=== PATIENT | female | born 1955 | race Caucasian/White ===

== ENCOUNTER → 2017-07-29 | Outpatient (CLI) | payer OTHER ==
[~2017-07-29] MED LIST: ACET-1966 PO; ASPI-692 PO; BIOT800T4 PO; CART1TAB5 PO; CHOL10005 PO; ESTR-35 PO; ESTRADIOL VAG CREAM VA; GRAP50CA5 PO; IBUP-1687 PO; MULT-1335 PO; OMEG-11 PO; RANI-324 PO; VITA-197 PO; VITA1CAP46 PO
--- NOTE | 2017-07-30 10:30 | RADIOLOGY IMAGING REPORT ---
FACILITY: [facility] PATIENT NAME: DARÍO EUGENE : [id number] MR: [id number] V: [id number] EXAM DATE: [id number] ORDERING PHYSICIAN: SAMI REYES TECHNOLOGIST: Melvina June PROCEDURE:BILATERAL DIGITAL SCREENING MAMMOGRAM WITH CAD ASSISTED INTERPRETATION AND 3D BREAST TOMOSYNTHESIS. COMPARISON:Prior mammograms dated 04/12/16, 01/18/15, 05/08/13, 10/19/11 and 08/07/10. INDICATIONS:SCREENING FINDINGS: Moderately heterogeneous fibroglandular tissue is seen throughout the breasts. The parenchymal pattern has remained stable when allowing for difference in mammographic technique and patient positioning. There is no evidence of malignant appearing mass, malignant appearing calcification or other secondary sign of malignancy in either breast. DIAGNOSTIC CATEGORY 2--BENIGN FINDING. RECOMMENDATIONS: ROUTINE MAMMOGRAM AND CLINICAL EVALUATION. IMPRESSION: Bi-RADS 2: No significant abnormality is seen. Images were reviewed with R2CAD and 3D breast tomosynthesis. Dictated by: Laureen Jorge M.D. on 07/29/2017 at 16:58 Transcribed by: AFSHIN on 07/29/2017 at 22:10 Approved by: Laureen Jorge M.D. on 07/30/2017 at 10:29 [facility]
== END ==
LOC: MAMO 01:36
PROVIDERS: ATTEND Nurse Practitioner Family
DX: Z12.31 Encounter for screening mammogram for malignant neoplasm of breast (principal)
CPT/HCPCS: 77063; 77067

== ENCOUNTER → 2018-08-28 | Outpatient (CLI) | payer OTHER ==
[~2018-08-28] MED LIST changes: -RANI-324 PO; +RANI-366 PO
--- NOTE | 2018-08-28 11:08 | RADIOLOGY IMAGING REPORT ---
FACILITY: [facility] PATIENT NAME: Ruth Galaviz : 1955 MR: [id number] V: [id number] EXAM DATE: ORDERING PHYSICIAN: SAMI REYES TECHNOLOGIST: Location: [facility] Patient: Ruth Galaviz : 1955 Visit/Account:[id number] Date of Sevice: 08/28/2018 DEXA Scan Clinical history: Postmenopausal screening. Comparison: DEXA scan from 01/10/2015. LUMBAR SPINE: The bone mineral density (BMD) measured from L1-L4 correlates with a Z-score of 1.5 and a T-score of 0.4 which is Normal as defined by the World Health Organization. The corresponding risk of fracture in the lumbar spine is Not increased compared with a young adult reference population. This value haas s increased by 1.2 % since the prior study. More than 5% change is considered significant. HIP: Bone mineral density (BMD) measured in the LEFT total hip region correlates with a Z-score 2.2 and a T-score of 1.3 which is normal as defined by the World Health Organization. The corresponding risk of fracture in the hip is Not i ncreased compared to a young adult reference population. This value has increased by 1.6 % since the prior study. More than 5% change is considered significant. T score left femoral neck 0.6 Bone mineral density (BMD) measured in the Femoral Neck region measures 1.125 g/cm?. IMPRESSION: 1. Lumbar spine: Normal. There has been 1.2% increase in the bone mineral density since the previou s exam. 2. Left Total Hip: Normal. There has been 1.6% increase in the bone mineral density since the previ ous exam. 3. Femoral Neck: Bone Mineral Density is 1.125 g/cm? The next DEXA scan of this patient should include the following sites: L1-L4 and the left hip. FRAX? WHO Fracture Risk Assessment Tool link: <http://www.shef.ac.uk/FRAX/tool.jsp?locationValue=9> PLEASE NOTE: 1) The World Health Organization defines low BMD as follows: T-score Normal > -1 Osteopenia < -1 and > -2.5 Osteoporosis < -2.5 without fractures Established osteoporosis < -2.5 with fractures 2) In general, you may wish to consider: Diagnosis Treatment Follow-up DEXA Normal BMD Prevention 2-3 years Osteopenia Prevention/therapy 1-2 years Osteoporosis Therapy Yearly 3) Fracture risk estimated from the T-score is more accurate for vertebral fractures (often spontane ous) than for hip fractures. Report Dictated By: Laureen Jorge MD at 08/28/2018 11:02 AM Report E-Signed By: Laureen Jorge MD at 08/28/2018 11:03 AM WSN:[id number]
--- NOTE | 2018-08-28 11:42 | RADIOLOGY IMAGING REPORT ---
FACILITY: [facility] [place] PATIENT NAME: DARÍO EUGENE : [id number] MR: [id number] V: [id number] EXAM DATE: ORDERING PHYSICIAN: SAMI REYES TECHNOLOGIST: Chrystal Vasques PROCEDURE:BILATERAL DIGITAL SCREENING MAMMOGRAM WITH CAD ASSISTED INTERPRETATION & 3D TOMOSYNTHESIS COMPARISON:Prior mammograms 07/29/17, 04/12/16, 01/18/15, 05/08/13, 10/19/11. INDICATIONS:SCREENING FINDINGS: The breasts are heterogeneously dense which can obscure small masses. The parenchymal pattern has remained stable allowing for difference in mammographic technique & patient positioning. DIAGNOSTIC CATEGORY 1--NEGATIVE. RECOMMENDATIONS: ROUTINE MAMMOGRAM AND CLINICAL EVALUATION. IMPRESSION: BIRADS 1: Negative. No significant abnormality is seen. Dictated by: Laureen Jorge M.D. on 08/28/2018 at 10:40 Transcribed by: KI on 08/28/2018 at 11:14 Approved by: Laureen Jorge M.D. on 08/28/2018 at 11:41 [facility]
== END ==
LOC: MAMO 00:41
PROVIDERS: ATTEND Nurse Practitioner Family
DX: Z12.31 Encounter for screening mammogram for malignant neoplasm of breast (principal); Z13.820 Encounter for screening for osteoporosis
CPT/HCPCS: 77063; 77067; 77080